=== PATIENT | male | born 1935 | race Caucasian/White ===

== ENCOUNTER → 2020-07-25 | Outpatient (CLI) | payer MEDICARE, OTHER ==
[~2020-07-25] MED LIST: ADVAIR 100-50 DISKUS IH; AMARYL2 MG PO; ASA PO; DIAZEPAM10 MG PO; FISH OIL500 MG PO; FLOMAX0.4 MG PO; HYDROCODONE PO; IOPAMIDOL 370 MG/ML 200 ML INFUS..BTL INJ ONE; LIPITOR80 MG PO; LISINOPRIL20 MG PO; SODIUM CHLORIDE 0.9% 50ML 50 ML ONE; SPIRIVA IH; VITB12 PO; ZEBETA10 M1 PO
[2020-07-25 11:47] LABS: CREATININE, SERUM 1.19 mg/dL (0.72-1.25)
== END ==
LOC: CT 11:04
PROVIDERS: ATTEND Internal Medicine Geriatric Medicine
DX: J44.1 Chronic obstructive pulmonary disease with (acute) exacerbation (principal)
CPT/HCPCS: 36415; 71260; 82565; 84520; Q9967

== ENCOUNTER → 2020-10-17 | Outpatient (CLI) | payer MEDICARE, OTHER ==
[2020-10-18 13:23] LABS: CREATININE, SERUM 0.84 mg/dL (0.72-1.25); EST GLOMERULAR FILTRATION RATE > 60 ML/MIN (60-)
== END ==
LOC: CT 09:06
PROVIDERS: ATTEND Internal Medicine Geriatric Medicine
DX: R63.4 Abnormal weight loss (principal); R91.8 Other nonspecific abnormal finding of lung field
CPT/HCPCS: 36415; 74177; 82565; Q9967

== ENCOUNTER 2021-01-01 09:04 | Emergency (ER) | payer MEDICARE, OTHER ==
[~2021-01-01] VITALS: Ht 165.1 cm; Wt 84.4 kg
[~2021-01-01 09:04] MED LIST changes: -IOPAMIDOL 370 MG/ML 200 ML INFUS..BTL INJ ONE; -SODIUM CHLORIDE 0.9% 50ML 50 ML ONE
[2021-01-01] MEDS ORDERED: LEXAPRO10 MG PO (09:26)
[2021-01-01] MEDS ORDERED: PREDNISONE5 MG (09:26)
[2021-01-01] MEDS ORDERED: METOPROLOL SUCC25 MG (09:26)
[2021-01-01] MEDS ORDERED: ENTRESTO 24 MG1 EACH (09:26)
[2021-01-01] MEDS ORDERED: ELIQUIS2.5 MG (09:26)
[2021-01-01] MEDS ORDERED: BASAGLAR K100 UNIT/1 (09:26)
[2021-01-01] MEDS ORDERED: TRULICITY3 MG/0.5 M (09:26)
[2021-01-01] MEDS ORDERED: FLUTICASONE PRO16 GM (09:26)
[2021-01-01] MEDS ORDERED: FUROSEMIDE40 MG (09:26)
[2021-01-01] MEDS ORDERED: AMIODARONE HCL200 MG (09:26)
[2021-01-01] MEDS ORDERED: SODIUM CHLORIDE 0.9% 500ML 500 ML IV ONE (09:30)
[2021-01-01] MEDS ORDERED: LINEZOLID 600 MG/D5W 300ML 300 ML IV STA (09:53)
[2021-01-01] MEDS ORDERED: MEROPENEM 1 GM in SODIUM CHLORIDE 0.9% 100 ML IV ONE (10:00)
[2021-01-01 10:02] LABS: BASOPHILS % 0.1 % (0.0-1.0); HEMATOCRIT 28.1 % (38.2-49.6); HEMOGLOBIN 8.6 g/dL (14.0-18.0); LYMPHOCYTES # (AUTO) 0.2 (1.0-3.2); LYMPHOCYTES % 2.2 % (18.0-39.1); MEAN CORPUSCULAR HEMOGLOBIN 29.6 pg (28-32); MEAN CORPUSCULAR HGB CONC 30.6 g/dL (31-35); MEAN CORPUSCULAR VOLUME 96.6 fL (81-99); MONOCYTES # (AUTO) 0.2 (0.2-0.8); MONOCYTES % 2.3 % (4.4-11.3); NEUTROPHILS % 95.2 % (38.7-80.0); PLATELET COUNT 235 x10e3/uL (140-360); RED BLOOD COUNT 2.91 x10e6/uL (4.3-5.7); RED CELL DISTRIBUTION WIDTH 24.3 % (11.7-14.4)
[2021-01-01 10:17] LABS: ALBUMIN 2.3 g/dL (3.5-5.0); ALBUMIN/GLOBULIN RATIO 0.8 (0.8-2.0); CALCIUM 7.9 mg/dL (8.4-10.2); CREATININE, SERUM 1.03 mg/dL (0.72-1.25); MAGNESIUM 1.8 MG/DL (1.3-2.1)
[2021-01-01] MEDS ORDERED: MEROPENEM 1 GM VIAL ONE (10:18)
[2021-01-01] MEDS ORDERED: SODIUM CHLORIDE 0.9% 1000ML 1,000 ML IV STA ×2 (10:18)
[2021-01-01] MEDS ORDERED: SODIUM CHLORIDE 0.9% 100 ML ONE (10:19)
[2021-01-01 10:24] LABS: CREATINE KINASE MB 0.9 ng/mL (0-5.0)
[2021-01-01 10:35] LABS: INR 0.96; PARTIAL THROMBOPLASTIN TIME 31.2 seconds (23.8-35.5); PROTHROMBIN TIME 13.2 seconds (11.9-14.5)
[2021-01-01] MEDS ORDERED: ALBUTEROL/IPRATROPIUM 3 ML NEB NEB ONE (11:00)
[2021-01-01] MEDS ORDERED: ACETAMINOPHEN 325 MG TAB PO ONE (11:00)
[2021-01-01 11:03] LABS: CLARITY,URINE SL CLOUDY (CLEAR); COLOR,URINE YELLOW (YELLOW); LEUKOCYTE ESTERASE ,URINE SMALL (NEGATIVE); NITRITE,URINE NEGATIVE (NEGATIVE); PROTEIN,URINE DIPSTICK 1+ (NEGATIVE)
[2021-01-01 11:04] LABS: KETONES,URINE NEGATIVE (NEGATIVE); URINE UROBILINOGEN 0.2 mg/dL (0.2 - 1)
[2021-01-01] MEDS ORDERED: ALBUTEROL/IPRATROPIUM 3 ML NEB ONE (11:11)
[2021-01-01 11:20] LABS: BACTERIA,URINE MODERATE /HPF; EPITHELIAL CELLS,URINE FEW /LPF; RBC,URINE 0-5 /HPF (0-5); WBC,URINE (MAN) >50 /HPF (0-5)
[2021-01-01 11:41] LABS: BAND NEUTROPHILS % (MANUAL) 5 %; LYMPHOCYTES % (MANUAL) 2 % (19-48); MONOCYTES % (MANUAL) 1 % (3.4-9.0); NEUTROPHILS % (MANUAL) 92 % (40-74)
[2021-01-01 11:42] LABS: ACANTHOCYTES FEW; ANISOCYTOSIS MODERATE; BURR CELLS SLIGHT; OVALOCYTES FEW
[2021-01-01 11:43] LABS: SCHISTOCYTES FEW
[2021-01-01 11:44] LABS: PLATELET ESTIMATE ADEQUATE; PLATELET MORPHOLOGY COMMENT NORMAL; RBC MORPHOLOGY COMMENT ABNORMAL
[2021-01-01] MEDS ORDERED: NOREPINEPHRINE 8 MG/D5W 250 ML 250 ML IV SCH (12:15)
[2021-01-01] MEDS ORDERED: HYDROCORTISONE SOD SUCCINATE 100 MG VIAL IV ONE (12:30)
[2021-01-01] MEDS ORDERED: MEROPENEM 1 GM in SODIUM CHLORIDE 0.9% 100 ML 100 ML IV SCH (18:00)
[2021-01-01] MEDS ORDERED: HYDROCORTISONE SOD SUCCINATE 100 MG VIAL IV SCH (18:00)
[2021-01-01] MEDS ORDERED: LINEZOLID 600 MG/D5W 300ML 300 ML IV SCH (23:00)
== END 2021-01-01 15:30 | disposition other institution (70) ==
LOC: ER 09:15
DX: A41.9 Sepsis, unspecified organism (principal); J90 Pleural effusion, not elsewhere classified; I50.9 Heart failure, unspecified; N39.0 Urinary tract infection, site not specified; D64.9 Anemia, unspecified; J44.9 Chronic obstructive pulmonary disease, unspecified; W18.30XA Fall on same level, unspecified, initial encounter; Y93.01 Activity, walking, marching and hiking; Y92.89 Other specified places as the place of occurrence of the external cause; R94.31 Abnormal electrocardiogram [ECG] [EKG]; Z20.822 Contact with and (suspected) exposure to COVID-19; F17.210 Nicotine dependence, cigarettes, uncomplicated
CPT/HCPCS: 36415; 36555; 51700; 70450; 71250; 72125; 72192; 74176; 80053; 81001; 82550; 82553; 82948; 83605; 83735; 83880; 84484; 85025; 85610; 85730; 87040; 87086; 93005; 94640; 99285; J1720; J2020; J2185; J7030; J7040; J7050; U0002